=== PATIENT | female | born 1945 | race Caucasian/White ===

== ENCOUNTER 2024-08-03 09:51 | Emergency (ER) | payer MEDICARE, BC, SELFPAY ==
[2024-08-03 09:55] VITALS: BP 174/88
[2024-08-03 10:47] LABS: Urine Albumin 3+ (Neg - Trace); Urine Bilirubin Negative (Negative); Urine Character Cloudy (Clear); Urine Color Yellow; Urine Glucose Negative (Negative); Urine Ketone 1+ (Negative); Urine Leukocyte 3+ (Negative); Urine Nitrite Negative (Negative); Urine Occult Blood 4+ (Negative); Urine Specific Gravity 1.015 (<1.030); Urine Urobilinogen Negative (Neg - 1+)
[2024-08-03 11:16] LABS: Urine White Cell >100 /HPF (0-5)
[2024-08-03 11:45] VITALS: BMI 27.0
--- NOTE | 2024-08-03 12:13 | ED.GENMED ---
History of Present Illness
General
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
Source: patient
Exam Limitations: none
Time Seen by Provider: 08/03/24 11:52
History of Present Illness
History of Present Illness:
79yoF with a history of hypertension and hyperlipidemia presenting with her daughter and [id number] for evaluation of pelvic pain. She has a known history of a uterine prolapse which does not usually cause pain. She started with a burning
pain in her vaginal area about 3 days ago. She has pain with walking as well as urinating. She is also urinating more frequently. Patient denies any abdominal or flank pain. She is otherwise asymptomatic and denies nausea, vomiting, fevers, or
chills. Patient has an appointment scheduled with urogynecology next week but could not wait that long due to her symptoms.
Phy Exam
General Physical Exam
General Presentation: well appearing and no apparent distress
General age: appears stated age
General Skin: warm and dry
General Habitus: normal
General Mental: alert
ENT Exam
ENT Exam: normocephalic
Pulmonary Exam
Pulmonary Exam: no respiratory distress
Gastrointestinal Exam
Gastrointestinal Exam: non tender, soft, non distended, no cva tenderness and other (No abdominal or CVA tenderness noted)
Genitourinary Exam Female
Exam Female: other (External genitalia appears irritated and erythematous. She has significant tenderness at the introitus. Mild uterine prolapse noted, cervix remains within the vagina.)
Neurological Exam
Neurological Exam: alert
Cedrick Coma Scale
Eye Opening: Spontaneous
Verbal Response: Oriented
Motor Response: Obeys Commands
GCS Total Score: 15
Skin Exam
Skin Exam: normal color and warm/dry
Psychiatric Exam
Psychiatric Exam: normal mood/affect
Course
Orders/Labs/Results
Orders:
Orders
08/03/24 10:06
Urinalysis Reflex To Culture Urgent
Date Specimen was Collected: 08/03/24
Time Specimen was Collected: 09:59
Urine Microscopic Reflex Cult Urgent
Urine Culture Urgent
ALVA Source: U
Specimen Description:
Date Specimen was Collected: 08/03/24
Time Specimen was Collected: 09:59
08/03/24 11:48
IV Insert/Care/Rem.- Treatment PRN
08/03/24 11:56
Complete Blood Count/With Diff Urgent
08/03/24 12:25
Pelvis & Transvaginal US [US Pelvis W Transvag Combined] Urgent
Comment:
Reason For Exam: pelvic pain
08/03/24 14:26
Comprehensive Metabolic Panel Urgent
08/03/24 14:55
US Abdomen Complete/Upper Urgent
Comment:
Reason For Exam: transaminitis
08/03/24 15:04
Cefdinir [Omnicef] 300 mg PO NOW STA
Abnormal Lab Results
08/03/24 08/03/24 08/03/24
10:06 11:56 14:26
WBC 13.5 H 10^3/uL
(4.8-10.8)
Hct 36.1 L %
(37.0-47.0)
RDW 15.5 H %
(11.5-14.5)
Plt Count 410 H 10^3/uL
(130-400)
Absolute Neuts (auto) 9.9 H 10^3/uL
(1.4-6.5)
Absolute Monos (auto) 1.4 H 10^3/uL
(0.1-0.6)
Lymphocytes % 15.3 L %
(20.5-51.1)
Monocytes % 10.1 H %
(1.7-9.3)
Sodium 134 L mmol/L
(135-145)
Potassium 5.5 H mmol/L
(3.5-5.1)
AST 90 H U/L
(14-36)
ALT 75 H U/L
(0-35)
Alkaline Phosphatase 215 H U/L
(38-126)
Total Protein 5.9 L g/dl
(6.3-8.2)
Albumin 3.4 L g/dl
(3.5-5.0)
Urine Ketones 1+ A
(Negative)
Ur Occult Blood Reflex 4+ A
(Negative)
Leukocyte Esterase Rfl 3+ A
(Negative)
Urine WBC (Reflex) >100 A /HPF
(0-5)
Urine Albumin (Reflex) 3+ A
(Neg - Trace)
08/03/24 11:56
08/03/24 14:26
Vital Signs
Initial and Last Documented VS:
Initial Vital Signs
Pulse Resp BP Pulse Ox
97 20 174/88 97
08/03/24 09:55 08/03/24 09:55 08/03/24 09:55 08/03/24 09:55
Last Documented Vital Signs
Temp Pulse Resp BP Pulse Ox
98.4 F 89 16 164/67 99
08/03/24 15:53 08/03/24 15:53 08/03/24 15:53 08/03/24 15:53 08/03/24 15:53
MDM/Problems Addressed
Differential Diagnosis Includes:
79yoF here with vaginal burning pain and urinary frequency x 3 days. No f/c. No flank pain or vomiting. She is hypertensive with otherwise normal vitals. She is well-appearing in no acute distress. Abdominal exam is benign. External genitalia is
irritated and inflamed and she has tenderness at the labia minora/introitus. Differential diagnosis includes but is not limited to: UTI, atrophic vaginitis, yeast infection, uterine prolapse
Initial ED plan: Check CBC, CMP, UA, and pelvic ultrasound.
*Critical Care Note
Total Time (30-74mins, 75-104mins- exclusive of procedures): Not Applicable
Update Note
Update Note:
UA with >100 WBC consistent with infection. Leukocytosis noted with WBC of 13.5. Mild transaminitis also present of unclear significance as patient has no abdominal complaints and there are no prior labs to compare to. Potassium 5.5 although renal
function is normal. Imaging shows no uterine abnormality with a small amount of echogenic debris within the urinary bladder. Upper abdominal ultrasound added which shows cholelithiasis without signs of cholecystitis. No hydronephrosis noted. No
indication for hospitalization at this time. She was started on a course of cefdinir. She has an appt scheduled with urogynecology in 4 days. Strict ED return precautions discussed. Patient in agreement with plan and was discharged in stable
condition.
ED Attending Note
-
Portions of this chart may have been created with voice recognition software.� Occasional wrong word or��sound alike� substitutions may have occurred due to the inherent limitations of voice recognition software.
Discharge Plan
Departure
Patient Disposition: Home (Routine Discharge)
Date of Disposition: 08/03/24
Time of Disposition: 16:16
Patient with high blood pressure during this ER visit?: Yes
Discharge Problem:
Urinary tract infection
Instructions: Urinary Tract Infection, Adult (DC)
Prescriptions:
New
cefdinir 300 mg capsule
300 mg PO BID Qty: 14 0RF
Referrals:
PRIVATE,PHYSICIAN [Family Provider] -
Activity Restrictions/Additional Instructions:
Take antibiotics as prescribed. Drink plenty of fluids.
Please follow-up with your family doctor and urogynecology next week. Return to the ER with any worsening symptoms, fevers, chills, vomiting, or flank pain.
Interventions
Interventions:
*Risk Screen - Suicide Last Done: 08/03/24 09:55
*General Assessment Last Done: 08/03/24 11:41
*Neglect/Abuse Screening Last Done: 08/03/24 11:41
ED- Fall Risk Assessment Last Done: 08/03/24 11:41
*ED COVID-19 Vaccine History Last Done: 08/03/24 11:41
*Nursing Disposition Last Done: 08/03/24 16:40
ED-Female Genitourinary Assessment Last Done: 08/03/24 11:47
Discharge Date and Time
Discharge Date/Time: 08/03/24 16:43
Print Language: UPPER SORBIAN
[2024-08-03 12:15] VITALS: BP 141/97
[2024-08-03 12:15] LABS: % Basophils 0.4 % (0-2); % Eosinophils 0.8 % (0-6); % Immature Granulocytes 0.3 % (0-0.5); % Lymphocytes 15.3 % (20.5-51.1); % Monocytes 10.1 % (1.7-9.3); % Neutrophils 73.1 % (42.2-75.2); Absolute Basophils 0.1 10^3/uL (0-0.2); Absolute Eosinophils 0.1 10^3/uL (0-0.7); Absolute Lymphocytes 2.1 10^3/uL (1.2-3.4); Absolute Monocytes 1.4 10^3/uL (0.1-0.6); Absolute Neutrophils 9.9 10^3/uL (1.4-6.5); Hematocrit 36.1 % (37.0-47.0); Hemoglobin 12.6 g/dL (12.0-16.0); Mean Corp Hgb Conc. 34.9 g/dL (33.0-37.0); Mean Corpuscular Hgb 29.8 pg (27.0-31.0); Mean Corpuscular Volume 85.3 fL (81.0-99.0); Nucleated Red Blood Cells % 0 %; Platelet Count 410 10^3/uL (130-400); Red Blood Cell Count 4.23 10^6/uL (4.20-5.40); Red Cell Dist. Width 15.5 % (11.5-14.5); White Blood Cell Count 13.5 10^3/uL (4.8-10.8)
--- NOTE | 2024-08-03 12:16 | EDRN ---
Vaishali Davis PA in to see pt.
[2024-08-03 13:00] VITALS: BP 156/66
[2024-08-03 14:00] VITALS: BP 154/74
[2024-08-03 14:47] LABS: ALT (SGPT) 75 U/L (0-35); AST (SGOT) 90 U/L (14-36); Albumin 3.4 g/dl (3.5-5.0); Alkaline Phosphatase 215 U/L (38-126); Blood Urea Nitrogen 13 mg/dl (7-17); Calcium 9.4 mg/dl (8.4-10.2); Carbon Dioxide 26 mmol/L (22-30); Chloride 104 mmol/L (98-107); Estimated Creatinine Clearance 72 ml/min; Glucose 92 mg/dl (70-99); Potassium 5.5 mmol/L (3.5-5.1); Sodium 134 mmol/L (135-145); Total Bilirubin 0.9 mg/dl (0.2-1.3); Total Protein 5.9 g/dl (6.3-8.2); eGFR > 60.00
[2024-08-03 15:53] VITALS: BP 164/67
[2024-08-03] MEDS: OMNICEF 300 MG PO (15:54)
== END 2024-08-03 16:43 | disposition home or self-care (01) ==
LOC: EMR 09:51
PROVIDERS: Emergency Medicine; EMERGENCY PHYSICIAN Emergency Medicine
DX: N39.0 Urinary tract infection, site not specified (principal); I10 Essential (primary) hypertension; E78.00 Pure hypercholesterolemia, unspecified; N81.4 Uterovaginal prolapse, unspecified
CPT/HCPCS: 99284; 76700; 76830; 76856; 80053; 81003; 81015; 85025; 87086